=== PATIENT | male | born 1955 | race Caucasian/White ===

== ENCOUNTER 2016-07-22 11:51 | Emergency (ER) | payer BC ==
[~2016-07-22] VITALS: Ht 172.7 cm; Wt 79.7 kg
[2016-07-22 11:55] VITALS: TEMP 37; Ht 172.7 cm; Wt 79.7 kg
--- NOTE | 2016-07-22 13:00 | DIAGNOSTIC IMAGING REPORT ---
LEFT SHOULDER MIN 2 VIEWS ROUTINE CLINICAL HISTORY: Left shoulder pain COMPARISON: 02/09/2015 DISCUSSION: No acute fractures or dislocations are visualized. There are moderate degenerative changes within the glenohumeral joint. There is a large amorphus calcification superior lateral to the humeral head consistent with calcific tendinopathy. IMPRESSION: 1. No acute fractures 2. Degenerative changes 3. Calcific tendinopathy Electronically signed by: Aakash Thompson M.D. 07/22/2016 12:59 PM Dictated Date/Time: 07/22/2016 12:58 PM
[2016-07-22] MEDS ORDERED: HYDR-5688 PO (13:25)
[2016-07-22] MEDS ORDERED: PRED20TA2 PO (13:25)
[2016-07-22 13:51] VITALS: BP 129/77; PULSE 67; O2SAT 99
--- NOTE | 2016-07-22 22:25 | EMERGENCY ROOM VISIT NOTE ---
ED Visit Note First contact with patient: 12:40 Chief Complaint: Left shoulder pain. History of Present Illness: Mr. Mendoza is a 60-year-old white male who ambulates into the ED complaining of anterior and lateral left humeral head pain. Historically patient reports she has a history of the shoulder arthritis. Patient reports approximately 4-5 hours ago he reports he rolled over in bed and developed acute onset of left shoulder pain. He does report as he was rolling he felt a popping sensation. Since that time his pain has been constant. He describes his pain as a deep achy sensation within the joint. He rates his discomfort 7/10. His pain is nonradiating. His pain worsens with all movement and palpation of the shoulder. He has mild relief of his discomfort when he is sitting up not moving his shoulder. He has not taken any medications for his pain prior to arrival at the hospital. He denies any associated symptoms including recent direct pain, neck pain, thoracic back pain , arm weakness/numbness/tingling. He also denies any previous significant injuries or surgeries. Review of Systems: As noted above in history of present illness. Past Medical History: Degenerative disc disease. Current Medications: Patient denies. Allergies to Medications: Patient denies. Social History: Patient is currently employed; he feels safe in his home environment; he denies tobacco use. Physical Examination: Vital Signs: Date Time Temp Pulse Resp B/P Pulse Ox O2 Delivery O2 Flow Rate FiO2 07/22/16 11:55 37.0 66 20 132/82 94 Room Air GENERAL: 61-year-old male in mild to moderate distress due to pain, nontoxic- appearing, afebrile and hemodynamically stable. NEUROLOGICAL: Awake, alert and oriented to person, place and time. Answering questions appropriately and following commands. SKIN: Warm, dry and pink. No soft tissue eruptions or trauma noted. BACK: No tenderness over the bony cervical or thoracic spine. LEFT UPPER EXTREMITY: No gross bony deformity. Moderate tenderness over the anterior lateral aspect of the humeral head without bony deformity, bony crepitus, swelling or ecchymosis. Because of his discomfort is difficult to do any range of motion at the shoulder or specialized testing. With the shoulder stabilize she does have full range of motion in flexion and extension of the elbow, pronation and supination of forearm, flexion, extension and radial and ulnar deviation of the wrist. Throughout the lower arm and hand the skin was warm and pink and capillary refill is brisk. ED Course: Patient is assessed as noted above. Left Shoulder X-Rays: Were read by myself and the radiologist showing no acute fractures or dislocations. Moderate degenerative changes with a large amorphus calcification superior lateral to the humeral head consistent with calcified tendinopathy. Patient was offered pain medication and refused. Patient's left shoulder was placed into a arm sling. Patient was educated about today's findings and instructed on his treatment plan ; he verbalizes understanding and agreement with this plan. Clinical Impression: Left shoulder pain. Disposition: Patient discharged home in stable condition; prior to departure he was reassessed and subjectively reported he was feeling better and rated his discomfort 4/10. Plan: Comfort measures were discussed with the patient including rest, sling use, ice and he was placed on a sliding pain scale of ibuprofen, acetaminophen and [place]. Additionally he was placed on oral steroids prednisone 60 mg once a day for 5 days. Patient was encouraged to follow-up with PCP for recheck in 5-6 days and possible referral to orthopedics. Patient was encouraged return the ED for worsening/uncontrolled pain, uncontrolled swelling, upper extremity weakness/numbness/tingling or any new/ concerning symptoms.
== END 2016-07-22 13:52 | disposition home or self-care (01) ==
LOC: C.EDB 11:52 → C.EDD 13:52
DX: M25.512 Pain in left shoulder (principal)

== ENCOUNTER → 2016-08-20 | Outpatient (CLI) | payer BC ==
[~2016-08-20] MED LIST: HYDR-5688 PO; PRED20TA2 PO
--- NOTE | 2016-08-20 10:48 | DIAGNOSTIC IMAGING REPORT ---
BONY ORBITS 3 VIEWS CLINICAL HISTORY: MRI clearance. FINDINGS: 3 views of the bony orbits are obtained. No prior studies are available for comparison at the time of dictation. There is no radiodense/metallic foreign body seen in the region of the bony orbits. The bony orbits are intact as imaged. The visualized paranasal sinuses and the mastoid air cells appear clear. The imaged calvarium appears intact. IMPRESSION: There is no radiodense/metallic foreign body seen in the region of the bony orbits. Electronically signed by: Kris Lopez M.D. 08/20/2016 10:46 AM Dictated Date/Time: 08/20/2016 10:36 AM
--- NOTE | 2016-08-20 11:40 | DIAGNOSTIC IMAGING REPORT ---
MRI left shoulder LEFT UPPER EXT JOINT WITHOUT CLINICAL HISTORY: M75.32 M25.512 pain TECHNIQUE: MRI multi axial acquisition COMPARISON STUDY: None FINDINGS: Findings of significant degenerative change of the glenohumeral joint. Mild flattening of the articular services of the glenoid as well as humeral head. Mild degenerative peripheral subchondral cyst formation. Degenerative subchondral cyst formation deep to the biceps tendon as well as the supraspinatus tendon insertion. Moderate tendinopathy as well as deterioration of the supraspinatus. Similar findings of the infraspinatus tendon. The subscapularis is entirely intact. Small osteophyte projecting from the inferior aspect of the glenoid. Biceps tendon is intact within the bicipital groove. There is a component of calcific supraspinatus and infraspinatus tendinopathy. Prior labrum shows moderate degenerative substance change with no well-defined acute tear. IMPRESSION: 1. Considerable degenerative change left shoulder 2. Moderate calcific tendinitis of the supraspinatus and infraspinatus. 3. Degenerative substance change of the matrix of the supraspinatus and infraspinatus tendons. 4. No evidence for full-thickness rotator cuff tear. 5. Moderate to rather significant degenerative subchondral cyst formation lateral aspect humeral head. Electronically signed by: Prasanna Shukla M.D. 08/20/2016 11:39 AM Dictated Date/Time: 08/20/2016 11:33 AM
== END | disposition home or self-care (01) ==
LOC: C.RADBC 10:06
PROVIDERS: ATTEND Physical Medicine & Rehabilitation Sports Medicine
DX: M75.32 Calcific tendinitis of left shoulder (principal); M25.512 Pain in left shoulder; M19.012 Primary osteoarthritis, left shoulder

== ENCOUNTER → 2016-11-05 | Outpatient (CLI) | payer OTHER ==
[2016-11-05 12:02] LABS: ALT/SGPT 28 U/L (12-78); AST/SGOT 18 U/L (15-37); BLOOD UREA NITROGEN 12 mg/dl (7-18); CALCIUM 8.9 mg/dl (8.5-10.1); CARBON DIOXIDE 30 mmol/L (21-32); CHLORIDE 107 mmol/L (98-107); CREATININE 0.94 mg/dl (0.60-1.40); GLUCOSE 101 mg/dl (70-99); SODIUM 141 mmol/L (136-145)
[2016-11-05 12:05] LABS: ALB/GLOB RATIO 1.1 (0.9-2); ALKALINE PHOSPHATASE 57 U/L (45-117); CHOLESTEROL 228 mg/dl (0-200); CHOLESTEROL/HDL RATIO 5.1; HDL CHOLESTEROL 45 mg/dl; LDL CHOLESTEROL CALCULATED 159 mg/dl; TRIGLYCERIDES 122 mg/dl (0-150); VERY LOW DENSITY LIPOPROT CALC 24 mg/dl
[2016-11-05 12:08] LABS: PROTHROMBIN TIME (PATIENT) 10.7 SECONDS (9.0-12.0)
[2016-11-05 12:22] LABS: URINE APPEARANCE CLEAR (CLEAR); URINE BILIRUBIN NEG (NEG); URINE COLOR YELLOW; URINE NITRITE NEG (NEG); URINE SPECIFIC GRAVITY 1.007 (1.000-1.030); UROBILINOGEN NEG (NEG)
[2016-11-05 12:52] LABS: MANUAL MICROSCOPIC REQUIRED? YES; REVIEW REQ? NO
[2016-11-05 12:59] LABS: URINE BACTERIA NEG (NEG); URINE RBC 0-4 /hpf (0-4); URINE WBC 0 /hpf (0-5)
[2016-11-07 12:11] LABS: QUANTIF TB AG-NIL 0.01 IU/ML; QUANTIFERON NIL 0.03 IU/ML
== END | disposition home or self-care (01) ==
LOC: C.LAB 09:02
PROVIDERS: ATTEND Surgery
DX: Z00.5 Encounter for examination of potential donor of organ and tissue (principal)

== ENCOUNTER → 2017-01-05 | Outpatient (CLI) | payer OTHER ==
[2017-01-05 10:26] LABS: CHOLESTEROL/HDL RATIO 5.3
== END ==
LOC: C.LAB 08:26
PROVIDERS: ATTEND Surgery
DX: Z00.5 Encounter for examination of potential donor of organ and tissue (principal)

== ENCOUNTER → 2017-09-30 | Outpatient (CLI) | payer BC, OTHER ==
--- NOTE | 2017-09-30 10:41 | DIAGNOSTIC IMAGING REPORT ---
R SHOULDER MIN 2 VIEWS CLINICAL HISTORY: Bilateral shoulder pain. COMPARISON: Right shoulder radiographs February 09, 2015 FINDINGS: Alignment of the right shoulder is anatomic. Joint space narrowing and osteophytosis of the right glenohumeral joint is noted. Osteophytosis is slightly increased. There is also moderate osteoarthritis of the right acromioclavicular joint. IMPRESSION: 1. No acute fracture. 2. Moderate to severe osteoarthritis of the right glenohumeral joint. Moderate AC joint osteoarthritis. Electronically signed by: Johnny Cortez M.D. 09/30/2017 10:39 AM Dictated Date/Time: 09/30/2017 10:39 AM
--- NOTE | 2017-09-30 11:08 | DIAGNOSTIC IMAGING REPORT ---
L SHOULDER MIN 2 VIEWS CLINICAL HISTORY: 62 years-old Male presenting with BILATERAL SHOULDER PAIN. TECHNIQUE: Frontal transscapular Y views, and axillary views of the left shoulder were obtained. COMPARISON: 07/22/2016. FINDINGS: Normal configuration of the acromion process. No subluxation of the humeral head. No effacement of the acromiohumeral interval. Osteophytosis and possible chondrocalcinosis at the humeral head is again evident. Resolution of prior calcification in the region of the supraspinatus tendon urine no new soft tissue calcification. No acute fracture or malalignment. IMPRESSION: Resolution of prior calcific tendinitis. Degenerative changes of the glenohumeral joint as on prior exam. No acute osseous injury. Electronically signed by: Riky Wright M.D. 09/30/2017 11:06 AM Dictated Date/Time: 09/30/2017 11:04 AM
== END | disposition home or self-care (01) ==
LOC: C.RDSM 10:41
PROVIDERS: ATTEND Family Medicine
DX: M19.011 Primary osteoarthritis, right shoulder (principal); M24.812 Other specific joint derangements of left shoulder, not elsewhere classified